=== PATIENT | male | born 1960 | race African-American/Black ===

== ENCOUNTER 2023-09-27 20:49 | Observation (INO) | payer OTHER ==
[2023-09-27 21:00] LABS: Glucose,Whole Blood 102 mg/dL (70-110)
--- NOTE | 2023-09-27 21:06 | ED ---
General Adult HPI - General Chief complaint: Neuro Symptoms/Deficit Stated complaint: neck pain Time Seen by Provider: 09/27/23 20:51 Source: patient, EMS Mode of arrival: EMS Limitations: no limitations - History of Present Illness Initial comments: Patient is a pleasant [age]-year-old male presenting to the emergency department by EMS from [facility]. Patient is therefore alcohol cocaine use. Patient states he has had some left neck discomfort for the past week. Patient states it somewhat worse the past hour. Patient states this radiates down the left arm. Patient feels his arm might be a little weak. Patient also has a headache from this. Patient also has some upper body and chest discomfort with this. - Related Data Home Medications Medication Instructions Recorded Confirmed Acetaminophen Tab [Tylenol] 650 mg PO Q4H PRN 09/27/23 09/27/23 Aspirin EC [Ecotrin Low Dose] 81 mg PO DAILY 09/27/23 09/27/23 Atorvastatin [Lipitor] 20 mg PO HS 09/27/23 09/27/23 Brimonidine Tartrate [Alphagan P 1 drop BOTH EYES QID 09/27/23 09/27/23 0.2% Ophth Soln] Calcium Phos/D3/Magnesium/Zinc 1 tab PO TID PRN 09/27/23 09/27/23 [Vqfsues-Vka-Wgxb-Vitamin D3] Chlorpheniramine Maleate 4 mg PO Q4H PRN 09/27/23 09/27/23 [Chlor-Trimeton] Dorzolamide/Timolol/Pf 1 drop BOTH EYES QID 09/27/23 09/27/23 [Dorzolamide 2%-Timolol 0.5%] Hyoscyamine Sulfate [Levsin] 0.125 mg PO QID PRN 09/27/23 09/27/23 Ibuprofen [Motrin Ib] 600 mg PO Q6H PRN 09/27/23 09/27/23 Loperamide HCl [Imodium A-D] 2 - 4 mg PO QID PRN 09/27/23 09/27/23 Mag Hydrox/Aluminum Hyd/Simeth 30 ml PO Q4H PRN 09/27/23 09/27/23 [Mylanta Maximum Strength Liq] Metoprolol Succinate [Metoprolol 25 mg PO DAILY 09/27/23 09/27/23 Succinate ER] Multivitamins, Thera [Multivitamin 1 tab PO DAILY 09/27/23 09/27/23 (formulary)] Nitroglycerin Sl Tabs [Nitrostat] 0.4 mg SUBLINGUAL Q5M PRN 09/27/23 09/27/23 Sodium Chloride 5% Ophth Soln 1 drop LEFT EYE QID 09/27/23 09/27/23 [Lisa 128] Thiamine [Vitamin B-1] 100 mg PO DAILY 09/27/23 09/27/23 ondansetron HCL [Ondansetron HCl] 8 mg PO Q6H PRN 09/27/23 09/27/23 Allergies Allergy/AdvReac Type Severity Reaction Status Date / Time meloxicam Allergy Nausea Verified 09/27/23 22:09 Review of Systems ROS Statement: Those systems with pertinent positive or pertinent negative responses have been documented in the HPI. ROS Other: All systems not noted in ROS Statement are negative. Constitutional: Denies: fever Eyes: Denies: eye pain ENT: Denies: ear pain Respiratory: Denies: cough Cardiovascular: Denies: chest pain Endocrine: Denies: fatigue Gastrointestinal: Denies: abdominal pain Genitourinary: Denies: urgency Musculoskeletal: Denies: back pain Skin: Denies: rash Neurological: Reports: as per HPI, headache. Denies: confusion Past Medical History Past Medical History: Hyperlipidemia, Hypertension Past Surgical History: No Surgical Hx Reported Past Psychological History: PTSD Smoking Status: Current every day smoker Past Alcohol Use History: Abuse Past Drug Use History: Cocaine General Exam Limitations: no limitations General appearance: alert, in no apparent distress Head exam: Present: normocephalic Eye exam: Present: normal appearance, PERRL, EOMI ENT exam: Present: normal oropharynx Neck exam: Present: normal inspection Respiratory exam: Present: normal lung sounds bilaterally Cardiovascular Exam: Present: regular rate, normal rhythm Expanded Peripheral pulses: 2+: Radial (R), Radial (L), Posterior Tibialis (R), Posterior Tibialis (L) GI/Abdominal exam: Present: soft. Absent: tenderness Extremities exam: Present: normal inspection, full ROM Neurological exam: Present: alert, oriented X3, CN II-XII intact. Absent: motor sensory deficit Expanded Neurological exam: Present: protecting the airway Speech: Present: fluid speech Cranial nerves: EOM's Intact: Normal Sensory exam: Upper Extremity Light Touch: Normal, Lower Extremity Light Touch: Normal Motor strength exam: RUE: 5, LUE: 5, RLE: 5, LLE: 5 Eye Response: (4) open spontaneously Motor Response: (6) obeys commands Verbal Response: (5) oriented Psychiatric exam: Present: normal affect, normal mood Skin exam: Present: normal color Course Vital Signs 09/27/23 09/27/23 20:51 21:00 Temperature 98.3 F 98.3 F Pulse Rate 62 60 Respiratory 18 18 Rate Blood Pressure 136/91 135/92 O2 Sat by Pulse 100 95 Oximetry EKG Findings - EKG Results: EKG: interpreted by ERMD ([place] left. Septal Q waves.), sinus rhythm, normal ST/T Medical Decision Making - Medical Decision Making Case was discussed with Dr. mckeon who agrees this is not a code stroke Was pt. sent in by a medical professional or institution (, PA, CLINIC MGR, urgent care, hospital, or detention...) When possible be specific @ -Patient was sent from [facility] Did you speak to anyone other than the patient for history (EMS, parent, family, police, friend...)? What history was obtained from this source @ -No Did you review nursing and triage notes (agree or disagree)? Why? @ -Chart reviewed from [facility] Were old charts reviewed (outside hosp., previous admission, EMS record, old EKG, old radiological studies, urgent care reports/EKG's, detention records)? Report findings @ -No old charts were reviewed Differential Diagnosis (chest pain, altered mental status, abdominal pain women, abdominal pain men, vaginal bleeding, weakness, fever, dyspnea, syncope, headache, dizziness, GI bleed, back pain, seizure, CVA, palpatations, mental health, musculoskeletal)? @ -Differential Weakness: Hypoglycemia, shock, sepsis, hyponatremia, anemia, infection, NM, ETOH, adverse medicine reaction, overdose, stroke, this is not meant to be an all-inclusive list. EKG interpreted by me (3pts min.). @ -As above X-rays interpreted by me (1pt min.). @ -Chest x-ray shows no acute process. Sternotomy wires are present. CT interpreted by me (1pt min.). @ -CT brain without large mass or hemorrhage U/S interpreted by me (1pt. min.). @ -None done What testing was considered but not performed or refused? (CT, X-rays, U/S, labs)? Why? @ -None What meds were considered but not given or refused? Why? @ -None Did you discuss the management of the patient with other professionals (professionals i.e. Dr., PA, CLINIC MGR, lab, RT, psych nurse, social media editor, corporate tax preparer, teacher, [employer] plans staff officer, counseling case manager)? Give summary @ -Case was discussed with Dr. tierney who will admit covering hospital call. Was smoking cessation discussed for >3mins.? @ -No Was critical care preformed (if so, how long)? @ -No Were there social determinants of health that impacted care today? How? (Homelessness, low income, unemployed, alcoholism, drug addiction, transportati on, low edu. Level, literacy, decrease access to med. care, shelter, rehab)? @ -No Was there de-escalation of care discussed even if they declined (Discuss DNR or withdrawal of care, Hospice)? DNR status @ -No What co-morbidities impacted this encounter? (DM, HTN, Smoking, COPD, CAD, Cancer, CVA, ARF, Chemo, Hep., AIDS, mental health diagnosis, sleep apnea, morbid obesity)? @ -None Was patient admitted / discharged? Hospital course, mention meds given and route, prescriptions, significant lab abnormalities, going to OR and other pertinent info. @ -Patient reevaluated. Still no weakness. No significant change with computed tomography scan. Patient does complain of chest discomfort and does have cardiac history as well as cocaine history. Patiently For cardiac observation. Patient was evaluated by Dr. tierney who is in agreement. Undiagnosed new problem with uncertain prognosis? @ -No Drug Therapy requiring intensive monitoring for toxicity (Heparin, Nitro, Insulin, Cardizem)? @ -No Were any procedures done? @ -No Diagnosis/symptom? @ -chest pain, trapezius strain Acute, or Chronic, or Acute on Chronic? @ -Acute, acute Uncomplicated (without systemic symptoms) or Complicated (systemic symptoms)? @ -default Side effects of treatment? @ -No Exacerbation, Progression, or Severe Exacerbation? @ -No Poses a threat to life or bodily function? How? (Chest pain, USA, NM, pneumonia, PE, COPD, DKA, ARF, appy, cholecystitis, CVA, Diverticulitis, Homicidal, Suicidal, threat to staff... and all critical care pts) @ -No - Lab Data Result diagrams: 09/27/23 20:55 09/27/23 20:55 Lab Results 09/27/23 09/27/23 09/27/23 Range/Units 20:55 20:55 20:55 WBC 5.2 (3.8-10.6) k/uL RBC 3.69 L (4.30-5.90) m/uL Hgb 13.0 (13.0-17.5) gm/dL Hct 39.1 (39.0-53.0) % MCV 106.0 H (80.0-100.0) fL MCH 35.1 H (25.0-35.0) pg MCHC 33.1 (31.0-37.0) g/dL RDW 13.4 (11.5-15.5) % Plt Count 159 (150-450) k/uL MPV 7.9 Neutrophils % 59 % Lymphocytes % 22 % Monocytes % 8 % Eosinophils % 6 % Basophils % 1 % Neutrophils # 3.1 (1.3-7.7) k/uL Lymphocytes # 1.2 (1.0-4.8) k/uL Monocytes # 0.4 (0-1.0) k/uL Eosinophils # 0.3 (0-0.7) k/uL Basophils # 0.0 (0-0.2) k/uL Macrocytosis Moderate PT 10.7 (10.0-12.5) sec INR 1.0 (<1.2) APTT 23.7 (22.0-30.0) sec Sodium 140 (137-145) mmol/L Potassium 4.5 (3.5-5.1) mmol/L Chloride 104 (98-107) mmol/L Carbon Dioxide 28 (22-30) mmol/L Anion Gap 8 mmol/L BUN 14 (9-20) mg/dL Creatinine 0.94 (0.66-1.25) mg/dL Est GFR (CKD-EPI)AfAm >90 (>60 ml/min/1.73 sqM) Est GFR (CKD-EPI)NonAf 88 (>60 ml/min/1.73 sqM) Glucose 88 (74-99) mg/dL POC Glucose (mg/dL) (70-110) mg/dL POC Glu Car Escort ID Calcium 9.3 (8.4-10.2) mg/dL Total Bilirubin 0.3 (0.2-1.3) mg/dL AST 27 (17-59) U/L ALT 19 (4-49) U/L Alkaline Phosphatase 52 (38-126) U/L Creatine Kinase 89 (55-170) U/L Troponin I (0.000-0.034) ng/mL Total Protein 7.0 (6.3-8.2) g/dL Albumin 4.4 (3.5-5.0) g/dL 09/27/23 09/27/23 Range/Units 20:55 20:59 WBC (3.8-10.6) k/uL RBC (4.30-5.90) m/uL Hgb (13.0-17.5) gm/dL Hct (39.0-53.0) % MCV (80.0-100.0) fL MCH (25.0-35.0) pg MCHC (31.0-37.0) g/dL RDW (11.5-15.5) % Plt Count (150-450) k/uL MPV Neutrophils % % Lymphocytes % % Monocytes % % Eosinophils % % Basophils % % Neutrophils # (1.3-7.7) k/uL Lymphocytes # (1.0-4.8) k/uL Monocytes # (0-1.0) k/uL Eosinophils # (0-0.7) k/uL Basophils # (0-0.2) k/uL Macrocytosis PT (10.0-12.5) sec INR (<1.2) APTT (22.0-30.0) sec Sodium (137-145) mmol/L Potassium (3.5-5.1) mmol/L Chloride (98-107) mmol/L Carbon Dioxide (22-30) mmol/L Anion Gap mmol/L BUN (9-20) mg/dL Creatinine (0.66-1.25) mg/dL Est GFR (CKD-EPI)AfAm (>60 ml/min/1.73 sqM) Est GFR (CKD-EPI)NonAf (>60 ml/min/1.73 sqM) Glucose (74-99) mg/dL POC Glucose (mg/dL) 102 (70-110) mg/dL POC Glu Car Escort ID Parag Lou Calcium (8.4-10.2) mg/dL Total Bilirubin (0.2-1.3) mg/dL AST (17-59) U/L ALT (4-49) U/L Alkaline Phosphatase (38-126) U/L Creatine Kinase (55-170) U/L Troponin I <0.012 (0.000-0.034) ng/mL Total Protein (6.3-8.2) g/dL Albumin (3.5-5.0) g/dL Disposition Clinical Impression: Chest pain, Trapezius strain Disposition: ADMITTED IP TO THIS HOSP Is patient prescribed a controlled substance at d/c from ED?: No Referrals: None,Stated [REFERRING] - 1-2 days Time of Disposition: 23:36
[2023-09-27 21:10] LABS: Basophils % (A) 1 %; Eosinophils # (A) 0.3 k/uL (0-0.7); Eosinophils % (A) 6 %; HCT 39.1 % (39.0-53.0); Lymphocytes # (A) 1.2 k/uL (1.0-4.8); Lymphocytes % (A) 22 %; MCH 35.1 pg (25.0-35.0); MCHC 33.1 g/dL (31.0-37.0); Macrocytosis Moderate; Mean Platelet Volume 7.9; Monocytes # (A) 0.4 k/uL (0-1.0); Monocytes % (A) 8 %; Neutrophils # (A) 3.1 k/uL (1.3-7.7); Neutrophils % (A) 59 %; Platelet Count 159 k/uL (150-450); RBC 3.69 m/uL (4.30-5.90); RDW 13.4 % (11.5-15.5); WBC 5.2 k/uL (3.8-10.6)
[2023-09-27 21:27] LABS: ALT 19 U/L (4-49); AST 27 U/L (17-59); African American GFR (CKD) >90 (>60 ml/min/1.73 sqM); Albumin 4.4 g/dL (3.5-5.0); Alkaline Phosphatase 52 U/L (38-126); Anion Gap 8 mmol/L; Blood Urea Nitrogen 14 mg/dL (9-20); Calcium 9.3 mg/dL (8.4-10.2); Carbon Dioxide 28 mmol/L (22-30); Chloride 104 mmol/L (98-107); Creatine Kinase 89 U/L (55-170); Glucose 88 mg/dL (74-99); Non-African American GFR(CKD) 88 (>60 ml/min/1.73 sqM); Potassium 4.5 mmol/L (3.5-5.1); Sodium 140 mmol/L (137-145); Total Bilirubin 0.3 mg/dL (0.2-1.3)
[2023-09-27 21:58] LABS: Partial Thromboplastin Time 23.7 sec (22.0-30.0); Prothrombin Time 10.7 sec (10.0-12.5)
--- NOTE | 2023-09-27 21:59 | CT ---
EXAMINATION TYPE: CT brain wo con CT DLP: Combined DLP 1887 mGycm, Automated exposure control for dose reduction was used. DATE OF EXAM: 09/27/2023 9:38 PM COMPARISON: Same day CT head.. CLINICAL INDICATION:Male, 63 years old with history of Neuro deficit, acute, stroke suspected, neuro deficit, delayed speech, suspected stroke TECHNIQUE: Brain: Axial CT images of the brain were obtained with coronal and sagittal reformats created and rev iewed. Contrast used: None. Oral contrast used: None. FINDINGS: Brain: Extra-axial spaces: No abnormal extra-axial fluid collections. Ventricular system: Within normal limits Cerebral parenchyma: No acute intraparenchymal hemorrhage or mass effect. The joseph-white junction is well differentiated. Cerebellum: Unremarkable. Mass effect: No evidence of midline shift. Intracranial vasculature: unremarkable Soft tissues: Normal. Calvarium/osseous structures: No depressed skull fracture. Paranasal sinuses and mastoid air cells: Moderate scattered paranasal sinus disease. Visualized orbits: Orbital contents are intact. IMPRESSION: No acute intracranial process.
--- NOTE | 2023-09-27 22:09 | CT ---
EXAMINATION TYPE: CT angio head neck CT DLP: 1887 mGycm, Automated exposure control for dose reduction was used. DATE OF EXAM: 09/27/2023 9:48 PM COMPARISON: CT brain same day. CLINICAL INDICATION:Male, 63 years old with history of Neuro deficit, acute, stroke suspected; PHH, n euro deficit, delayed speech, suspected stroke TECHNIQUE: Axially acquired helical CT angiogram of the head and neck was obtained with contrast. Axi al images are supplemented with 3D reconstructions and MIP images which were post-processed at an in dependent workstation. NASCET criteria used. Contrast used:65cc mL of Isovue 370 with IV Contrast, Oral contrast used: None. FINDINGS: CTA HEAD: No evidence of acute intracranial hemorrhage, mass effect, or midline shift. The ventricles, sulci, a nd cisterns are unremarkable. The visualized portions of the internal carotid arteries, middle cerebral arteries, anterior cerebral arteries, and posterior cerebral arteries are patent. Atherosclerosis of the carotid siphons bilater ally. The basilar and vertebral arteries are patent. CTA NECK: Right Carotid System: The common carotid artery and external carotid artery are patent. The carotid bifurcation demonstrate s no evidence of hemodynamically significant stenosis. The remaining portions of the internal carotid artery demonstrate normal size without significant narrowing. Left Carotid System: The common carotid and external carotid arteries are patent. There is less than 25% stenosis at the c arotid bifurcation secondary to calcified/noncalcified plaque. The rest of the internal carotid arter y is patent. Vertebral arteries are patent without evidence hemodynamically significant stenosis. There is a three-vessel aortic arch. The origins of the great vessels are patent. No evidence of hemo dynamically significant stenosis. Upper thorax: IMPRESSION: 1. No evidence of dissection of the cervical internal carotid arteries or vertebral arteries or any e vidence of significant stenosis at the carotid bifurcations. 2. No evidence of intracranial high-grade stenosis or intracranial aneurysm.
--- NOTE | 2023-09-27 22:20 | XR ---
EXAMINATION TYPE: XR chest 2V DATE OF EXAM: 09/27/2023 10:01 PM CLINICAL INDICATION:Male, 63 years old with history of altered mental status; [facility] COMPARISON: None TECHNIQUE: XR chest 2V Frontal and lateral views of the chest. FINDINGS: Lungs/Pleura: There is no evidence of pleural effusion, focal consolidation, or pneumothorax. Pulmonary vascularity: Unremarkable. Heart/mediastinum: Cardiomediastinal silhouette is unremarkable. Musculoskeletal: No acute osseous pathology. Midline sternotomy wires are noted. IMPRESSION: No acute cardiopulmonary disease/process.
[2023-09-27] MEDS ORDERED: ORPHENADRINE 30 MG/ML 2 ML VIAL IVP STA (22:23)
[2023-09-27] MEDS ORDERED: ASPIRIN 81 MG PO STA (23:36)
[2023-09-27] MEDS ORDERED: NITROGLYCERIN SL TABS 0.4 MG TAB SUBLINGUAL PRN (23:36)
[2023-09-28] MEDS: NITROGLYCERIN OINT 1 INCH/GM PACKET TOPICAL SCH ×2 (00:16→05:15)
[2023-09-28] MEDS ORDERED: ATORVASTATIN 80 MG TAB PO STA (01:41)
--- NOTE | 2023-09-28 01:42 | P.HPIM ---
History of Present Illness H&P Date: 09/27/23 Patient is a 63-year-old male with a PMH of polysubstance abuse who was sent in from [place] rehab (where patient is undergoing detox for crack, cocaine, and alcohol), CAD status post CABG, and congestive heart failure (unknown type and severity) presents to the emergency room for complaints of left-sided paresthesias and chest discomfort. Patient notes that over the past few days he has been experiencing left sided neck discomfort with pain that radiates down into his left arm with associated left hand and arm numbness and occasional weakness. Also reports left facial paresthesias earlier today. Denied facial asymmetry, speech impairment, or unsteady gait. Further reported an episode of epigastric and substernal chest tightness without associated shortness of breath, nausea, diaphoresis, or dizziness. Chest tightness lasted for about an hour, nonradiating, without alleviating or exacerbating features and then resolved spontaneously. He reports feeling better at the time of interview despite ongoing left-sided neck pain. In the emergency room a CT angiogram head and neck and CT brain were unremarkable. EKG revealed sinus rhythm with LVH at [address]/T-wave changes orders reviewed by me. A chest x-ray was unremarkable. Laboratory evaluation revealed an MCV of 106 with no other abnormalities. ED documentation reviewed and case discussed with ED provider. Review of systems: Pertinent positives and negatives as discussed in HPI, a complete review of systems was performed and all other systems are negative. Physical examination: Vital signs reviewed General: non toxic, no distress, appears at stated age, normal weight Derm: no unusual rashes/lesions, warm Head: atraumatic, normocephalic, symmetric Eyes: EOMI, no lid lag, anicteric sclera, pupils equal round reactive to light ENT: Nose and ears atraumatic Neck: No cervical lymphadenopathy, trachea midline, supple, mild diffuse left- sided neck paraspinal tenderness Mouth: no lip lesion, mucus membranes moist Cardiovascular: S1S2 reg, no murmur, positive dorsalis pedis pulse bilateral, no edema Lungs: CTA bilateral, no rhonchi, no rales, no accessory muscle use Abdominal: soft, nontender to palpation, no guarding Ext: muscle strength 5 out of 5 in all 4 extremities grossly, no gross muscle atrophy, no contractures, Neuro: CN II-XI grossly intact, no gross focal neuro deficits, absent pronator drift Psych: Alert, oriented, appropriate affect Assessment: Chest pain, rule out ACS Left upper extremity and facial paresthesias, concerning for TIA Macrocytosis Chronic conditions: Congestive heart failure Imaging: In the emergency room a CT angiogram head and neck and CT brain were unremarkable. EKG revealed sinus rhythm with LVH at [address]/T-wave changes orders reviewed by me. A chest x-ray was unremarkable. Data Review: Laboratory evaluation revealed an MCV of 106 with no other abnormalities. Plan: Trend troponin Cardiac monitoring Cardiology consult Continue with aspirin, statin Obtain echocardiogram Neurology consulted Neuro checks DVT prophylaxis: Lovenox Subq The patient is admitted with an anticipated less than 2 midnight stay for evaluation of chest pain CODE STATUS: Full Code Discussed with: Patient Anticipated discharge place: [facility] Past Medical History Past Medical History: Hyperlipidemia, Hypertension Past Surgical History: No Surgical Hx Reported Past Psychological History: PTSD Smoking Status: Current every day smoker Past Alcohol Use History: Abuse Past Drug Use History: Cocaine Medications and Allergies Home Medications Medication Instructions Recorded Confirmed Type Acetaminophen Tab [Tylenol] 650 mg PO Q4H PRN 09/27/23 09/27/23 History Aspirin EC [Ecotrin Low Dose] 81 mg PO DAILY 09/27/23 09/27/23 History Atorvastatin [Lipitor] 20 mg PO HS 09/27/23 09/27/23 History Brimonidine Tartrate [Alphagan P 1 drop BOTH EYES QID 09/27/23 09/27/23 History 0.2% Ophth Soln] Calcium Phos/D3/Magnesium/Zinc 1 tab PO TID PRN 09/27/23 09/27/23 History [Dlvwahq-Vry-Xjpg-Vitamin D3] Chlorpheniramine Maleate 4 mg PO Q4H PRN 09/27/23 09/27/23 History [Chlor-Trimeton] Dorzolamide/Timolol/Pf 1 drop BOTH EYES QID 09/27/23 09/27/23 History [Dorzolamide 2%-Timolol 0.5%] Hyoscyamine Sulfate [Levsin] 0.125 mg PO QID PRN 09/27/23 09/27/23 History Ibuprofen [Motrin Ib] 600 mg PO Q6H PRN 09/27/23 09/27/23 History Loperamide HCl [Imodium A-D] 2 - 4 mg PO QID PRN 09/27/23 09/27/23 History Mag Hydrox/Aluminum Hyd/Simeth 30 ml PO Q4H PRN 09/27/23 09/27/23 History [Mylanta Maximum Strength Liq] Metoprolol Succinate [Metoprolol 25 mg PO DAILY 09/27/23 09/27/23 History Succinate ER] Multivitamins, Thera [Multivitamin 1 tab PO DAILY 09/27/23 09/27/23 History (formulary)] Nitroglycerin Sl Tabs [Nitrostat] 0.4 mg SUBLINGUAL Q5M PRN 09/27/23 09/27/23 History Sodium Chloride 5% Ophth Soln 1 drop LEFT EYE QID 09/27/23 09/27/23 History [Lisa 128] Thiamine [Vitamin B-1] 100 mg PO DAILY 09/27/23 09/27/23 History ondansetron HCL [Ondansetron HCl] 8 mg PO Q6H PRN 09/27/23 09/27/23 History Allergies Allergy/AdvReac Type Severity Reaction Status Date / Time meloxicam Allergy Nausea Verified 09/27/23 22:09 Physical Exam Vitals: Vital Signs Temp Pulse Resp BP Pulse Ox 09/27/23 21:00 98.3 F 60 18 135/92 95 09/27/23 20:51 98.3 F 62 18 136/91 100 Intake and Output 09/27/23 09/27/23 09/28/23 14:59 22:59 06:59 Other: Weight 102.058 kg Results CBC & Chem 7: 09/27/23 20:55 09/27/23 20:55 Labs: Abnormal Lab Results - Last 24 Hours (Table) 09/27/23 Range/Units 20:55 RBC 3.69 L (4.30-5.90) m/uL MCV 106.0 H (80.0-100.0) fL MCH 35.1 H (25.0-35.0) pg
[2023-09-28] MEDS: ENOXAPARIN 40 MG/0.4 ML SYRINGE SQ SCH (08:10)
[2023-09-28] MEDS ORDERED: ASPIRIN 325 MG TAB PO SCH (09:00)
--- NOTE | 2023-09-28 09:10 | P.CRDCN ---
History of Present Illness History of present illness: HISTORY OF PRESENT ILLNESS: This is a 63-year-old male with a past medical history significant for coronary artery disease with previous CABG in December 2020, nicotine dependence, alcohol abuse, and drug abuse. Patient follows at the [facility] in [place]. We have been asked to see the patient in consultation for chest pain. Patient examined at the bedside. Patient is currently at [facility] for rehab. Patient states yesterday while he was laying down in bed he began to have sharp pains in his neck and his shoulder. He states he had numbness and tingling on the entire left side of his body from his arms all the way down to his toes. He reports having a headache yesterday as well. He states this has been happening a few times over the past week. He denies any episodes of syncope. He denies any history of CVA or TIA. The patient is a current threat smoker. He reports a history of alcohol use but states he has been sober for 10 days. He also has a history of drug abuse including cocaine. * EKG reveals sinus mechanism with no signs of acute ischemia * Chest xray negative for acute process * Laboratory data: Troponin negative 1 * Current home cardiac medications include aspirin 81 mg daily, atorvastatin 20 mg at night * CTA: No evidence of dissection of the cervical internal carotid arteries or vertebral arteries. No significant stenosis at the carotid bifurcations. No evidence of intracranial high-grade stenosis or intracranial aneurysm. * No previous echocardiogram or cardiac catheterization available for review REVIEW OF SYSTEMS: At the time of my exam: CONSTITUTIONAL: Denies fever or chills. HEENT: Denies blurred vision, vision changes, or eye pain. Denies hemoptysis CARDIOVASCULAR: Denies chest pain. Denies orthopnea. Denies PND. Denies palpitations RESPIRATORY: Denies shortness of breath. GASTROINTESTINAL: Denies abdominal pain. Denies nausea or vomiting. HEMATOLOGIC: Denies bleeding disorders. GENITOURINARY: Denies any blood in urine. SKIN: Denies pruitis. Denies rash. PHYSICAL EXAM: VITAL SIGNS: Reviewed. GENERAL: Well-developed in no acute distress. HEENT: Head is normocephalic. Pupils are equal, round. Sclerae anicteric. Mucous membranes of the mouth are moist. Neck supple. No JVD or thyromegaly LUNGS: Respirations even and unlabored. Lungs essentially clear to auscultation bilaterally. HEART: Regular rate and rhythm. S1 and S2 heard. ABDOMEN: Soft. Nondistended. Nontender. EXTREMITIES: Normal range of motion. No clubbing or cyanosis. Peripheral pulses intact. No lower extremity edema NEUROLOGIC: Awake and alert. Oriented x 3. ASSESSMENT: Left-sided numbness, rule out TIA Chest pain, atypical, troponin negative 1 Coronary artery disease with previous CABG, 2020, details unknown Nicotine dependence History of alcohol abuse History of drug abuse PLAN: Obtain 2-D echo to assess cardiac structure and function Resume home cardiac medications Trend troponins Continue telemetry monitoring Neurology has been consulted. Await evaluation Further recommendations pending patient's course Nurse practitioner note has been reviewed by physician. Signing provider agrees with the documented findings, assessment, and plan of care. Past Medical History Past Medical History: Hyperlipidemia, Hypertension Additional Past Medical History / Comment(s): CHF History of Any Multi-Drug Resistant Organisms: None Reported Past Surgical History: No Surgical Hx Reported Additional Past Surgical History / Comment(s): L Eye, triple bypass Past Anesthesia/Blood Transfusion Reactions: No Reported Reaction Past Psychological History: PTSD Smoking Status: Current every day smoker Past Alcohol Use History: Abuse Past Drug Use History: Cocaine, Marijuana Medications and Allergies Home Medications Medication Instructions Recorded Confirmed Type Acetaminophen Tab [Tylenol] 650 mg PO Q4H PRN 09/27/23 09/27/23 History Aspirin EC [Ecotrin Low Dose] 81 mg PO DAILY 09/27/23 09/27/23 History Atorvastatin [Lipitor] 20 mg PO HS 09/27/23 09/27/23 History Brimonidine Tartrate [Alphagan P 1 drop BOTH EYES QID 09/27/23 09/27/23 History 0.2% Ophth Soln] Calcium Phos/D3/Magnesium/Zinc 1 tab PO TID PRN 09/27/23 09/27/23 History [Nqtodsq-Glg-Mnvz-Vitamin D3] Chlorpheniramine Maleate 4 mg PO Q4H PRN 09/27/23 09/27/23 History [Chlor-Trimeton] Dorzolamide/Timolol/Pf 1 drop BOTH EYES QID 09/27/23 09/27/23 History [Dorzolamide 2%-Timolol 0.5%] Hyoscyamine Sulfate [Levsin] 0.125 mg PO QID PRN 09/27/23 09/27/23 History Ibuprofen [Motrin Ib] 600 mg PO Q6H PRN 09/27/23 09/27/23 History Loperamide HCl [Imodium A-D] 2 - 4 mg PO QID PRN 09/27/23 09/27/23 History Mag Hydrox/Aluminum Hyd/Simeth 30 ml PO Q4H PRN 09/27/23 09/27/23 History [Mylanta Maximum Strength Liq] Metoprolol Succinate [Metoprolol 25 mg PO DAILY 09/27/23 09/27/23 History Succinate ER] Multivitamins, Thera [Multivitamin 1 tab PO DAILY 09/27/23 09/27/23 History (formulary)] Nitroglycerin Sl Tabs [Nitrostat] 0.4 mg SUBLINGUAL Q5M PRN 09/27/23 09/27/23 Hi story Sodium Chloride 5% Ophth Soln 1 drop LEFT EYE QID 09/27/23 09/27/23 History [Lisa 128] Thiamine [Vitamin B-1] 100 mg PO DAILY 09/27/23 09/27/23 History ondansetron HCL [Ondansetron HCl] 8 mg PO Q6H PRN 09/27/23 09/27/23 History Allergies Allergy/AdvReac Type Severity Reaction Status Date / Time meloxicam Allergy Nausea Verified 09/27/23 22:09 Physical Exam Vitals: Vital Signs Temp Pulse Resp BP Pulse Ox 09/28/23 08:13 59 L 18 119/78 98 09/28/23 06:40 98.2 F 54 L 18 112/67 98 09/28/23 05:13 98.7 F 65 16 110/80 98 09/28/23 03:14 62 18 131/80 95 09/28/23 00:54 98.7 F 59 L 18 122/72 98 09/27/23 21:00 98.3 F 60 18 135/92 95 09/27/23 20:51 98.3 F 62 18 136/91 100 Intake and Output 09/27/23 09/28/23 09/28/23 22:59 06:59 14:59 Other: Weight 102.058 kg 102.058 kg Results 09/27/23 20:55 12/04/23 20:55 Cardiac Enzymes 09/27/23 09/27/23 Range/Units 20:55 20:55 AST 27 (17-59) U/L Troponin I <0.012 (0.000-0.034) ng/mL Coagulation 09/27/23 Range/Units 20:55 PT 10.7 (10.0-12.5) sec APTT 23.7 (22.0-30.0) sec CBC 09/27/23 Range/Units 20:55 WBC 5.2 (3.8-10.6) k/uL RBC 3.69 L (4.30-5.90) m/uL Hgb 13.0 (13.0-17.5) gm/dL Hct 39.1 (39.0-53.0) % Plt Count 159 (150-450) k/uL Comprehensive Metabolic Panel 09/27/23 Range/Units 20:55 Sodium 140 (137-145) mmol/L Potassium 4.5 (3.5-5.1) mmol/L Chloride 104 (98-107) mmol/L Carbon Dioxide 28 (22-30) mmol/L BUN 14 (9-20) mg/dL Creatinine 0.94 (0.66-1.25) mg/dL Glucose 88 (74-99) mg/dL Calcium 9.3 (8.4-10.2) mg/dL AST 27 (17-59) U/L ALT 19 (4-49) U/L Alkaline Phosphatase 52 (38-126) U/L Total Protein 7.0 (6.3-8.2) g/dL Albumin 4.4 (3.5-5.0) g/dL Current Medications Generic Name Dose Route Start Last Admin Trade Name Freq PRN Reason Stop Dose Admin Aspirin 325 mg 09/28/23 09:00 09/28/23 08:10 Aspirin 325 Mg Tab PO 325 mg DAILY [facility] Administration Atorvastatin Calcium 80 mg 09/28/23 21:00 Atorvastatin 80 Mg Tab PO HS [facility] Enoxaparin Sodium 40 mg 09/28/23 09:00 09/28/23 08:10 Enoxaparin 40 Mg/0.4 Ml Syringe SQ 40 mg DAILY [facility] Administration Nitroglycerin 0.4 mg 09/27/23 23:36 Nitroglycerin Sl Tabs 0.4 Mg Tab SUBLINGUAL Q5M PRN Chest Pain Nitroglycerin 1 inch 09/28/23 00:00 09/28/23 05:15 Nitroglycerin Oint 1 Inch/Gm Packet TOPICAL 1 inch Q6HR [facility] Administration Intake and Output 09/27/23 09/28/23 09/28/23 22:59 06:59 14:59 Other: Weight 102.058 kg 102.058 kg 09/27/23 20:55 09/27/23 20:55
[2023-09-28] MEDS ORDERED: CYCLOBENZAPRINE 10 MG TAB PO PRN (09:36)
[2023-09-28] MEDS ORDERED: ORPHENADRINE 30 MG/ML 2 ML VIAL IVP STA (09:36)
[2023-09-28] MEDS: ASPIRIN 81 MG PO SCH (10:01)
[2023-09-28] MEDS: METOPROLOL SUCCINATE (ER) 25 MG TAB.ER.24H PO SCH (10:01)
--- NOTE | 2023-09-28 11:59 | CA ---
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 Barbara Melendez [facility] Procedure CPT: Indications: chf Cardiac Hx: Technical Quality: Fair Contrast 1: Definity Total Dose (mL): 6 Contrast 2: Total Dose (mL): MEASUREMENTS (Male / Female) Normal Values 2D ECHO LV Diastolic Diameter PLAX 5.9 cm 4.2 - 5.9 / 3.9 - 5.3 cm LV Systolic Diameter PLAX 4.2 cm IVS Diastolic Thickness 1.2 cm 0.6 - 1.0 / 0.6 - 0.9 cm LVPW Diastolic Thickness 1.2 cm 0.6 - 1.0 / 0.6 - 0.9 cm LV Relative Wall Thickness 0.4 Ascending Aorta Diameter 3.3 cm M-MODE Aortic Root Diameter MM 2.6 cm LA Systolic Diameter MM 5.4 cm LA Ao Ratio MM 2.1 AV Cusp Separation MM 2.0 cm DOPPLER AV Peak Velocity 132.4 cm/s AV Peak Gradient 7.0 mmHg AV Mean Velocity 97.5 cm/s AV Mean Gradient 4.1 mmHg AV Velocity Time Integral 29.7 cm LVOT Peak Velocity 95.7 cm/s LVOT Peak Gradient 3.7 mmHg LVOT Velocity Time Integral 20.3 cm MR Peak Velocity 496.6 cm/s MR Peak Gradient 98.7 mmHg Mitral E Point Velocity 119.9 cm/s Mitral A Point Velocity 32.0 cm/s Mitral E to A Ratio 3.7 MV Deceleration Time 230.9 ms LV E' Lateral Velocity 9.6 cm/s Mitral E to LV E' Lateral Ratio 12.5 LV E' Septal Velocity 5.7 cm/s Mitral E to LV E' Septal Ratio 21.1 TR Peak Velocity 242.2 cm/s TR Peak Gradient 23.5 mmHg Right Atrial Pressure 3.0 mmHg Pulmonary Artery Systolic Pressu 26.5 mmHg Right Ventricular Systolic Press 28.5 mmHg FINDINGS Left Ventricle Mildly increased left ventricular wall thickness. Left ventricular cavity size at the upper limits of normal. Left ventricular ejection fraction is estimated at 45-50%. Mildly reduced left ventricular systolic function. Hypokinetic apical septum. [place] hypokinetic. Hypokinetic anterior wall. Right Ventricle Moderate right ventricular dilatation. Right Atrium Severe right atrial dilatation. Left Atrium Severe left atrial dilatation. Mitral Valve Mitral valve thickened. Moderate mitral regurgitation. Aortic Valve Trileaflet aortic valve. No aortic regurgitation. Tricuspid Valve Structurally normal tricuspid valve. Trace tricuspid regurgitation. Pulmonic Valve Structurally normal pulmonic valve. No pulmonic regurgitation. Pericardium No pericardial effusion. Aorta Normal size aortic root and proximal ascending aorta. CONCLUSIONS Impaired LV function. The ejection fraction is 40-45% Moderate mitral regurgitation with a central jet Severe biatrial enlargement Previewed by: Dr. Eric Bruner MD (Electronically Signed) Final Date: 28 September 2023 11:58
[2023-09-28 14:15] VITALS: RESP 16
--- NOTE | 2023-09-28 15:03 | P.PN ---
Subjective Progress Note Date: 09/28/23 Patient is a 63-year-old male with known polysubstance abuse currently at [place], coronary artery disease status post CABG, and congestive heart failure (unknown type) who came to the emergency department for left-sided paresthesias and chest discomfort. On arrival to the emergency department vital signs within normal limits. Laboratory analysis was unremarkable including normal troponin. CT head shows no acute process. CT imaging of head and neck shows no evidence of dissection of the cervical internal carotid arteries and vertebral arteries, no evidence of high-grade stenosis or intracranial aneurysm. Chest x-ray shows no acute cardiopulmonary disease. Rate is made for observation for possible acute coronary syndrome. Patient seen and examined at bedside. He reports that he has been at [place] for approximately 10 days. Over the last several days he has had increasing neck pain. This is associated with some numbness over his left trigeminal area as well as into his left shoulder. He may or may not have some tingling down into his left fingertips. He does sometimes get a shooting pain from his neck and through to his left shoulder. He did have some associated chest discomfort however he states it was a mild compared to the neck pain and numbness he was having. He has no history of TIA in the past. He does believe he has some history of arthritis. The [employer] did work well for his pain yesterday. Vital signs reviewed General: nontoxic, no distress, appears at stated age Cardiovascular: S1S2 reg, no murmur, positive posterior tibial pulse bilateral, Lungs: CTA bilateral, no rhonchi, no rales , no accessory muscle use Abdominal: soft, nontender to palpation, no guarding, no appreciable organomegaly Ext: no gross muscle atrophy, no edema b/l lower extremities, no contractures Neuro: CN II-XI grossly intact, no focal neuro deficits, positive Spurling's test on the left Psych: Alert, oriented, appropriate affect Assessment/Plan: Chest pain Neck pain assoiced with left face and arm paresthesia, clinically Doubt TIA but concerns for possible cervical stenosis HFrEF - will chech MRI Brain and C-spine with and without contrast - 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 Though every attempt is made to correct errors during dictation some may still exist. Objective - Vital Signs Vital signs: Vital Signs Temp 98.2 F 09/28/23 06:40 Pulse 54 L 09/28/23 06:40 Resp 18 09/28/23 06:40 BP 112/67 09/28/23 06:40 Pulse Ox 98 09/28/23 06:40 FiO2 Intake & Output 09/27/23 09/28/23 09/28/23 18:59 06:59 18:59 Weight 102.058 kg - Labs CBC & Chem 7: 09/27/23 20:55 09/27/23 20:55 Labs: Abnormal Lab Results - Last 24 Hours (Table) 09/27/23 Range/Units 20:55 RBC 3.69 L (4.30-5.90) m/uL MCV 106.0 H (80.0-100.0) fL MCH 35.1 H (25.0-35.0) pg
[2023-09-28] MEDS: NICOTINE 21MG/24HR PATCH TRANSDERM SCH (15:36)
[2023-09-28] MEDS ORDERED: MORPHINE SULFATE 2 MG/ML SYRINGE IVP STA (20:31)
[2023-09-28] MEDS ORDERED: ATORVASTATIN 40 MG TAB PO SCH (21:00)
[2023-09-28] MEDS ORDERED: ATORVASTATIN 80 MG TAB PO SCH (21:00)
[2023-09-29 06:33] LABS: HCT 41.7 % (39.0-53.0); HGB 14.1 gm/dL (13.0-17.5); MCH 35.8 pg (25.0-35.0); MCHC 33.9 g/dL (31.0-37.0); MCV 105.6 fL (80.0-100.0); Macrocytosis Slight; Platelet Count 153 k/uL (150-450); RBC 3.94 m/uL (4.30-5.90); RDW 13.1 % (11.5-15.5); WBC 4.4 k/uL (3.8-10.6)
[2023-09-29 06:39] LABS: African American GFR (CKD) >90 (>60 ml/min/1.73 sqM); Anion Gap 8 mmol/L; Blood Urea Nitrogen 12 mg/dL (9-20); Calcium 9.2 mg/dL (8.4-10.2); Carbon Dioxide 29 mmol/L (22-30); Chloride 101 mmol/L (98-107); Glucose 86 mg/dL (74-99); Magnesium 2.2 mg/dL (1.6-2.3); Non-African American GFR(CKD) >90 (>60 ml/min/1.73 sqM); Phosphorus 3.8 mg/dL (2.5-4.5); Potassium 4.5 mmol/L (3.5-5.1); Sodium 138 mmol/L (137-145)
[2023-09-29] MEDS: NICOTINE 21MG/24HR PATCH TRANSDERM SCH (09:29)
[2023-09-29] MEDS: ASPIRIN 81 MG PO SCH (09:29)
[2023-09-29] MEDS: ENOXAPARIN 40 MG/0.4 ML SYRINGE SQ SCH (09:29)
[2023-09-29] MEDS: METOPROLOL SUCCINATE (ER) 25 MG TAB.ER.24H PO SCH (09:29)
--- NOTE | 2023-09-29 10:59 | P.PN ---
Subjective HISTORY OF PRESENT ILLNESS: This is a 63-year-old male with a past medical history significant for coronary artery disease with previous CABG in December 2020, nicotine dependence, alcohol abuse, and drug abuse. Patient follows at the [facility] in [place]. We have been asked to see the patient in consultation for chest pain. Patient examined at the bedside. Patient is currently at [place] for rehab. Patient states yesterday while he was laying down in bed he began to have sharp pains in his neck and his shoulder. He states he had numbness and tingling on the entire left side of his body from his arms all the way down to his toes. He reports having a headache yesterday as well. He states this has been happening a few times over the past week. He denies any episodes of syncope. He denies any history of CVA or TIA. The patient is a current threat smoker. He reports a history of alcohol use but states he has been sober for 10 days. He also has a history of drug abuse including cocaine. * EKG reveals sinus mechanism with no signs of acute ischemia * Chest xray negative for acute process * Laboratory data: Troponin negative 1 * Current home cardiac medications include aspirin 81 mg daily, atorvastatin 20 mg at night * CTA: No evidence of dissection of the cervical internal carotid arteries or vertebral arteries. No significant stenosis at the carotid bifurcations. No evidence of intracranial high-grade stenosis or intracranial aneurysm. * No previous echocardiogram or cardiac catheterization available for review 09/29/2023 Patient examined this morning at the bedside. Patient states he is feeling better today. He denies any chest pain or pressure. He denies any shortness of breath. Vital signs are stable. Echocardiogram completed revealing ejection fraction 40-45 %, hypokinetic apical septum, apex hypokinetic, hypokinetic anterior wall, severe left and right atrial dilatation, and moderate mitral regurgitation with a central jet. PHYSICAL EXAM: VITAL SIGNS: Reviewed. GENERAL: Well-developed in no acute distress. HEENT: Head is normocephalic. Pupils are equal, round. Sclerae anicteric. Mucous membranes of the mouth are moist. Neck supple. No JVD or thyromegaly LUNGS: Respirations even and unlabored. Lungs essentially clear to auscultation bilaterally. HEART: Regular rate and rhythm. S1 and S2 heard. ABDOMEN: Soft. Nondistended. Nontender. EXTREMITIES: Normal range of motion. No clubbing or cyanosis. Peripheral pulses intact. No lower extremity edema NEUROLOGIC: Awake and alert. Oriented x 3. 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 Please reconsult if needed. Nurse practitioner note has been reviewed by physician. Signing provider agrees with the documented findings, assessment, and plan of care. Objective - Vital Signs Vital signs: Vital Signs Temp 98.0 F 09/29/23 07:30 Pulse 52 L 09/29/23 07:30 Resp 16 09/29/23 07:30 BP 119/73 09/29/23 07:30 Pulse Ox 100 09/29/23 07:30 FiO2 Intake & Output 09/28/23 09/29/23 09/29/23 18:59 06:59 18:59 Intake Total 118 118 Balance 118 118 Intake: Oral 118 118 Other: # Voids 1 2 - Labs CBC & Chem 7: 09/29/23 06:10 09/29/23 06:10 Labs: Abnormal Lab Results - Last 24 Hours (Table) 09/29/23 Range/Units 06:10 RBC 3.94 L (4.30-5.90) m/uL MCV 105.6 H (80.0-100.0) fL MCH 35.8 H (25.0-35.0) pg
[2023-09-29] MEDS ORDERED: IBUPROFEN 600 MG TAB PO PRN (14:04)
[2023-09-29] MEDS ORDERED: ACETAMINOPHEN TAB 325 MG TAB PO PRN (14:04)
--- NOTE | 2023-09-29 14:40 | MR ---
EXAMINATION TYPE: MR brain wo cspine wo/w DATE OF EXAM: 09/29/2023 COMPARISON: None HISTORY: Left arm and facial numbness. CONTRAST: Performed utilizing 10 mL intravenous Gadavist gadolinium contrast. TECHNIQUE: Multiplanar, multiecho imaging on a 3.0 Angie magnet is performed through the brain. Stud y is performed within 24 hours of arrival to the hospital. The craniovertebral junction is normal. The pituitary is normal. Diffusion-weighted imaging is performed. No abnormal hyperintensity is present to suggest an acute i ntracranial infarct or acute ischemic change. There are scattered punctate areas of hyperintensity on T2 and Inversion Recovery weighted sequences in the periventricular deep white matter which are non-specific but can be related to microvascular i schemic changes. Ventricles and sulci are appropriate for the patient age. Air-fluid levels are within the maxillary sinuses. Diffuse maxillary sinus mucosal thickening and muc osal thickening throughout ethmoid air cells present. Because of thickening is present within the fro ntal sinuses. Correlate for acute sinusitis. IMPRESSION: 1. Chronic appearing periventricular white matter ischemic type changes. 2. Focal correlation recommended for acute sinusitis. EXAMINATION TYPE: MR brain wo cspine wo/w DATE OF EXAM: 09/29/2023 COMPARISON: None HISTORY: Left arm and facial numbness. CONTRAST: Performed utilizing 10 mL intravenous Gadavist gadolinium contrast. TECHNIQUE: Multiplanar multiecho imaging on a 3.0 Angie magnet is performed through the cervical spin e. FINDINGS: The craniovertebral junction is normal. Vertebral body alignment is normal. C7-T1: Central disc bulge is present with mild to moderate anterior thecal sac compression. No AP sp inal canal stenosis present. Neural foramen are patent. No cord contact 7.. C6-7: No focal disc herniation or significant disc bulge is evident. No spinal canal stenosis or rosie ral foraminal stenosis is present. C5-6: Moderate-sized central protrusion is present with moderate anterior thecal sac compression. Thi s is in close approximation of the spinal cord. No AP spinal canal stenosis is present. Neural forame n are patent.. C4-5: Small central subligamentous disc herniation is present. This has mild anterior thecal sac comp ression. No AP spinal canal stenosis is present. Neural foramen are patent. C3-4: Broad-based disc bulge with mild anterior flattening. No AP spinal canal stenosis or foraminal stenosis.. C2-3: No focal disc herniation or significant disc bulge is evident. No spinal canal stenosis or rosie ral foraminal stenosis is present. Following contrast ministration no suspicious enhancement is evident. IMPRESSION: 1. Small central subligamentous disc herniation C4-5. 2. Moderate size central protrusion C5-6. 3. Central disc bulging with mild to moderate anterior thecal sac compression C7-T1
[2023-09-29 15:06] VITALS: BP 123/78; PULSE 68; TEMP 97.7
[2023-09-29] MEDS ORDERED: predniSONE 20 MG TAB PO STA (16:02)
--- NOTE | 2023-09-29 16:15 | P.DS ---
Providers Date of admission: 09/27/23 23:36 Expected date of discharge: 09/29/23 Attending physician: Carmen Lopez MD Primary care physician: [facility] Hospital Course: Discharge Diagnosis: Chest pain, acute coronary syndrome ruled out Neck pain secondary to cervical disc disease with moderate central canal stenosis Compensated HFrEF Ischemic cardiomyopathy Nicotine dependency Polysubstance abuse Hospital Course: Patient is a 63-year-old male with known polysubstance abuse currently at [facility], coronary artery disease status post CABG, and congestive heart failure (unknown type) who came to the emergency department for left-sided paresthesias and chest discomfort. On arrival to the emergency department vital signs within normal limits. Laboratory analysis was unremarkable including normal troponin. CT head shows no acute process. CT imaging of head and neck shows no evidence of dissection of the cervical internal carotid arteries and vertebral arteries, no evidence of high-grade stenosis or intracranial aneurysm. Chest x-ray shows no acute cardiopulmonary disease. Arrangements were made for observation for possible acute coronary syndrome. Echocardiogram demonstrated ejection fraction 45-50% with hypokinetic apical septum and apex, severe biatrial enlargement this was felt to be chronic in nature and he was cleared for discharge by cardio. He underwent MRI brain head and cervical spine. MRI brain showed chronic white matter ischemic changes with no acute process. MRI of the cervical spine demonstrated small central subligamentous disc herniation C4-5 as well as moderate sized central disc protrusion C5-C6 with disc bulging and mild to moderate anterior thecal sac compression at C7-T1. Patient seen and examined at bedside. His pain is improved from yesterday. Tingling is improved from yesterday. Vital signs reviewed and stable. General: nontoxic, no distress, appears at stated age Cardiovascular: S1S2 reg, no murmur, positive posterior tibial pulse bilateral, Lungs: CTA bilateral, no rhonchi, no rales , no accessory muscle use Abdominal: soft, nontender to palpation, no guarding, no appreciable organomegaly Ext: no gross muscle atrophy, no edema b/l lower extremities, no contractures Neuro: CN II-XI grossly intact, no focal neuro deficits Psych: Alert, oriented, appropriate affect A total of 35 minutes of time were spent preparing this complex discharge summary. Patient was discharged on 09/29/23. This dictation was prepared using [employer] voice recognition software. Though every attempt is made to correct errors during dictation some may still exist. Patient Condition at Discharge: Stable Plan - Discharge Summary Discharge Rx Participant: Yes New Discharge Prescriptions: New Nicotine 21Mg/24Hr Patch [Habitrol] 1 patch TRANSDERM DAILY patch methylPREDNISolone Dose Pack [Medrol Dose Pack] 4 mg PO DIRECTED #21 tab Orphenadrine [Norflex] 100 mg PO Q12H PRN #10 tab PRN Reason: Muscle Spasm Continue Mag Hydrox/Aluminum Hyd/Simeth [Mylanta Maximum Strength Liq] 30 ml PO Q4H PRN PRN Reason: Gi Upset Ibuprofen [Motrin Ib] 600 mg PO Q6H PRN PRN Reason: Pain Or Fever > 100.5 Hyoscyamine Sulfate [Levsin] 0.125 mg PO QID PRN PRN Reason: Secretions Nitroglycerin Sl Tabs [Nitrostat] 0.4 mg SUBLINGUAL Q5M PRN PRN Reason: Chest Pain Metoprolol Succinate [Metoprolol Succinate ER] 25 mg PO DAILY Brimonidine Tartrate [Alphagan P 0.2% Ophth Soln] 1 drop BOTH EYES QID Atorvastatin [Lipitor] 20 mg PO HS ondansetron HCL [Zofran] 8 mg PO Q6H PRN PRN Reason: Nausea Acetaminophen Tab [Tylenol] 650 mg PO Q4H PRN PRN Reason: Pain Or Fever > 100.5 Thiamine [Vitamin B-1] 100 mg PO DAILY Multivitamins, Thera [Multivitamin (formulary)] 1 tab PO DAILY Loperamide HCl [Imodium A-D] 2 - 4 mg PO QID PRN PRN Reason: Diarrhea Chlorpheniramine Maleate [Chlor-Trimeton] 4 mg PO Q4H PRN PRN Reason: WITHDRAWL SYMPTOMS Calcium Phos/D3/Magnesium/Zinc [Xfdixin-Bld-Kuel-Vitamin D3] 1 tab PO TID PRN PRN Reason: SUPPLEMENT Sodium Chloride 5% Ophth Soln [Lisa 128] 1 drop LEFT EYE QID Aspirin EC [Ecotrin Low Dose] 81 mg PO DAILY Dorzolamide/Timolol/Pf [Dorzolamide 2%-Timolol 0.5%] 1 drop BOTH EYES QID Discharge Medication List Acetaminophen Tab [Tylenol] 650 mg PO Q4H PRN 09/27/23 [History] Aspirin EC [Ecotrin Low Dose] 81 mg PO DAILY 09/27/23 [History] Atorvastatin [Lipitor] 20 mg PO HS 09/27/23 [History] Brimonidine Tartrate [Alphagan P 0.2% Ophth Soln] 1 drop BOTH EYES QID 09/27/23 [History] Calcium Phos/D3/Magnesium/Zinc [Tgzrqdt-Xxk-Mliv-Vitamin D3] 1 tab PO TID PRN 09/27/23 [History] Chlorpheniramine Maleate [Chlor-Trimeton] 4 mg PO Q4H PRN 09/27/23 [History] Dorzolamide/Timolol/Pf [Dorzolamide 2%-Timolol 0.5%] 1 drop BOTH EYES QID 09/27/23 [History] Hyoscyamine Sulfate [Levsin] 0.125 mg PO QID PRN 09/27/23 [History] Ibuprofen [Motrin Ib] 600 mg PO Q6H PRN 09/27/23 [History] Loperamide HCl [Imodium A-D] 2 - 4 mg PO QID PRN 09/27/23 [History] Mag Hydrox/Aluminum Hyd/Simeth [Mylanta Maximum Strength Liq] 30 ml PO Q4H PRN 09/27/23 [History] Metoprolol Succinate [Metoprolol Succinate ER] 25 mg PO DAILY 09/27/23 [History] Multivitamins, Thera [Multivitamin (formulary)] 1 tab PO DAILY 09/27/23 [History] Nitroglycerin Sl Tabs [Nitrostat] 0.4 mg SUBLINGUAL Q5M PRN 09/27/23 [History] Sodium Chloride 5% Ophth Soln [Lisa 128] 1 drop LEFT EYE QID 09/27/23 [History] Thiamine [Vitamin B-1] 100 mg PO DAILY 09/27/23 [History] ondansetron HCL [Zofran] 8 mg PO Q6H PRN 09/27/23 [History] Nicotine 21Mg/24Hr Patch [Habitrol] 1 patch TRANSDERM DAILY patch 09/29/23 [Rx] Orphenadrine [Norflex] 100 mg PO Q12H PRN #10 tab 09/29/23 [Rx] methylPREDNISolone Dose Pack [Medrol Dose Pack] 4 mg PO DIRECTED #21 tab 09/29/23 [Rx] Follow up Appointment(s)/Referral(s): None,Stated [REFERRING] - 1-2 days Activity/Diet/Wound Care/Special Instructions: Activity: As tolerated Diet: Heart healthy Special Instructions: upon completion fo your program at [facility]. MRI of the cervical spine showed small central subligamentous disc herniation C4-5 as well as moderate sized central disc protrusion C5-C6 with disc bulging and mild to moderate anterior thecal sac compression at C7-T1 Discharge Disposition: OTHER INSTITUTION NOT DEFINED
== END 2023-09-29 18:11 | disposition other institution (70) ==
LOC: EC 20:49 → 6NMEDSUR 23:36 → 1SOBS 09-28 05:45 → 6NMEDSUR 09-28 13:38
PROVIDERS: ADMIT Internal Medicine; ATTEND Internal Medicine
DX: R07.89 Other chest pain (principal); R20.2 Paresthesia of skin; R20.0 Anesthesia of skin; I11.0 Hypertensive heart disease with heart failure; I50.20 Unspecified systolic (congestive) heart failure; I25.5 Ischemic cardiomyopathy; M50.221 Other cervical disc displacement at C4-C5 level; M50.222 Other cervical disc displacement at C5-C6 level; F17.200 Nicotine dependence, unspecified, uncomplicated; F14.10 Cocaine abuse, uncomplicated; D75.89 Other specified diseases of blood and blood-forming organs; E78.5 Hyperlipidemia, unspecified; F43.10 Post-traumatic stress disorder, unspecified; I25.10 Atherosclerotic heart disease of native coronary artery without angina pectoris; Z95.1 Presence of aortocoronary bypass graft; Z79.82 Long term (current) use of aspirin; Z79.899 Other long term (current) drug therapy; Z88.8 Allergy status to other drugs, medicaments and biological substances
CPT/HCPCS: 36415; 70450; 70496; 70498; 70551; 71046; 72156; 80048; 80053; 82550; 82747; 83735; 84100; 84484; 85025; 85027; 85610; 85730; 93005; 93306